=== PATIENT | female | born 1990 ===

== ENCOUNTER 2024-02-02 05:03 | Outpatient (CLI) | payer BC ==
[2024-02-02] VITALS (21 sets, daily range): BP systolic 126–151; BP diastolic 89–105; PULSE 99–127
== END 2024-02-02 23:59 | disposition home or self-care (01) ==
LOC: CARD DIAG 05:03
PROVIDERS: ATTEND Internal Medicine Interventional Cardiology
DX: I95.1 Orthostatic hypotension (principal)
CPT/HCPCS: 93660